=== PATIENT | female | born 1950 | race African-American/Black ===

== ENCOUNTER 2016-08-01 12:02 | Emergency (ER) | payer MEDICARE, OTHER ==
[~2016-08-01] VITALS: Ht 154.9 cm; Wt 83.9 kg
[~2016-08-01 12:02] MED LIST: AMLODIPINE BES2.5 MG ORAL; BENAZEPRIL HCL10 MG ORAL; CATAPRES0.1 MG ORAL; CATAPRES0.2 MG ORAL; CEPHALEXIN500 MG PO; DILANTIN30 MG ORAL; DILANTIN50 MG PO; GABAPENTIN; GABAPENTIN300 MG ORAL; HYDROCHLOROTH12.5 M2 ORAL; IBUPROFEN600 MG ORAL; NORCO 5-325 TA1 EACH ORAL; PHENOBARBITAL30 MG ORAL; PHENOBARBITAL30 MG PO; RANITIDINE HCL150 MG ORAL; VICODIN 5-5001 EACH ORAL; ZOFRAN ODT4 MG ORAL; [UNRECOGNIZED DRUG - OTHER]; gabapentin PO
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
[2016-08-01 13:08] VITALS: BP 127/73
[2016-08-01] MEDS ORDERED: TYLENOL325 MG ORAL (13:30)
[2016-08-01 13:44] VITALS: BP 127/73
--- NOTE | 2016-08-01 17:44 | Diagnostic Imaging Report ---
Indication: PAIN Technique: 3 views of the left shoulder Comparison: none Findings: No acute fractures. No dislocations. There is degenerative narrowing of the glenohumeral joint. There is any unusual ossific density protruding inferior to the femoral head neck junction, appears to be confluent with the main body of the humerus. Impression:Unusual appearing ossific density, appears to be attached to the humeral head, appearance suggestive of an osteochondroma. However, position of the physis is unusual for this. Other possibilities should be considered, including intra-articular calcifications that are not actually attached. For further evaluation Degenerative changes, as described No definite acute bony trauma. Findings previously discussed by phone with Dr. Jackson
== END 2016-08-01 13:45 | disposition home or self-care (01) ==
LOC: EMR 12:56
DX: S40.012A Contusion of left shoulder, initial encounter (principal); W19.XXXA Unspecified fall, initial encounter; Y92.9 Unspecified place or not applicable; I10 Essential (primary) hypertension; Z85.3 Personal history of malignant neoplasm of breast
CPT/HCPCS: 99283

== ENCOUNTER 2017-01-31 12:16 | Emergency (ER) | payer MEDICARE, OTHER ==
[~2017-01-31] VITALS: Ht 157.5 cm; Wt 85.7 kg
[~2017-01-31 12:16] MED LIST changes: +TYLENOL325 MG ORAL
[2017-01-31 12:19] VITALS: BP 139/86
[2017-01-31 12:42] LABS: APPEARANCE,URINE SLIGHTLY CLOUDY; KETONES,URINE 1+ (NEGATIVE); LEUKOCYTE ESTERASE ,URINE 3+ (NEGATIVE); NITRITE,URINE NEGATIVE (NEGATIVE); PH,URINE 6 (4.5-8.0); PROTEIN,URINE 1+ (NEGATIVE); UROBILINOGEN,URINE 1 MG/DL (0.0-1.0)
[2017-01-31 12:47] LABS: BACTERIA,URINE FEW /HPF; SQUAMOUS EPITHELIAL CELL,UR FEW /LPF (NONE/OCC)
[2017-01-31] MEDS ORDERED: traMADol 50mg tab ORAL ONE (13:15)
--- NOTE | 2017-01-31 13:36 | Emergency Room Report ---
History of Present Illness General Chief Complaint: Pain Source: Patient, Medical Record Present Illness HPI The patient is a 66-year-old female presenting for right lower back pain which began this morning upon waking. She denies any injury to the area. Pain is 9/ 10 sharp sensation and does not radiate. Pain is continuous and worse with movement. She denies trying any pain medications at home. She denies any other symptoms including N, V, F, chills, dysuria, hematuria, abd pain, CP, SOB Allergies: Coded Allergies: TETRACYCLINE (Verified Allergy, Unknown, 06/20/10) Patient History Past Medical History: see triage record Pertinent Family History: none Reviewed Nursing Documentation: PMH: Agreed, PSxH: Agreed Nursing Documentation-PMH Past Medical History: No History, Except For Hx Cardiac Problems: No Hx Hypertension: Yes Hx Pacemaker: No Hx Asthma: No Hx COPD: No Hx Diabetes: No Hx Cancer: Yes - left breast, 8 yrs in remission Hx Gastrointestinal Problems: No Hx Dialysis: No Hx Neurological Problems: Yes - Brain Surgery 1993 Hx Cerebrovascular Accident: No Hx Seizures: Yes - last sz 6 yrs ago Review of Systems All Other Systems: negative except mentioned in HPI Physical Exam Vital Signs Date Time Temp Pulse Resp B/P (MAP) Pulse Ox O2 Delivery O2 Flow Rate FiO2 01/31/17 12:19 98.2 93 16 139/86 98 Room Air Sp02 EP Interpretation: reviewed, normal General Appearance: no apparent distress, alert, GCS 15, non-toxic Head: normocephalic, atraumatic Eyes: bilateral eye normal inspection, bilateral eye PERRL ENT: hearing grossly normal, normal pharynx, no angioedema, normal voice Neck: full range of motion, supple/symm/no masses Respiratory: chest non-tender, lungs clear, normal breath sounds, speaking full sentences Cardiovascular #1: regular rate, rhythm, no edema Genitourinary: normal inspection, no CVA tenderness Musculoskeletal: normal inspection, tender - Diffuse lower back to soft touch Neurologic: alert, oriented x3, responsive Psychiatric: judgement/insight normal, memory normal, mood/affect normal, no suicidal/homicidal ideation Skin: normal color, no rash, warm/dry, well hydrated Medical Decision Making PA Attestation Dr. Cole is my supervising physician. Patient management was discussed with my supervising physician Diagnostic Impression: Primary Impression: Urinary tract infection Qualified Codes: N39.0 - Urinary tract infection, site not specified ER Course The patient is a 66-year-old female presenting for right lower back pain Differential diagnosis considered but not limited to: UTI,pyelonephritis, muscle strain, chronic pain PE: Vitals WNL. NAD. Abdomen: Normal appearance. Non distended. No ecchymosis. Normal BS. TTP over suprapubic region only. No McBurney point tenderness. No guarding. Back: No midline tenderness. Diffuse lumbar muscular tenderness with soft palpation. No CVA tenderness Urinalysis is consistent with urinary tract infection She is given tramadol for pain with significant improvement. The patient discharged home with a prescription for Macrobid and is given ER precautions. Laboratory Tests Test 01/31/17 12:26 Urine Color Yellow Urine Appearance Slightly cloudy Urine pH 6 (4.5-8.0) Urine Specific [place] 1.020 (1.005-1.035) Urine Protein 1+ (NEGATIVE) H Urine Glucose (UA) Negative (NEGATIVE) Urine Ketones 1+ (NEGATIVE) H Urine Occult Blood 1+ (NEGATIVE) H Urine Nitrite Negative (NEGATIVE) Urine Bilirubin Negative (NEGATIVE) Urine Urobilinogen 1 MG/DL (0.0-1.0) H Urine Leukocyte Esterase 3+ (NEGATIVE) H Urine RBC 2-4 /HPF (0 - 2) H Urine WBC 2-4 /HPF (0 - 2) Urine Squamous Epithelial Cells Few /LPF (NONE/OCC) Urine Bacteria Few /HPF (NONE) Lab Results Impression Few bacteria with WBCs Last Vital Signs Date Time Temp Pulse Resp B/P (MAP) Pulse Ox O2 Delivery O2 Flow Rate FiO2 01/31/17 12:19 98.2 93 16 139/86 98 Room Air Status: improved Disposition: HOME, SELF-CARE Condition: Improved Scripts Tramadol Hcl* (ULTRAM*) 50 Mg Tablet 50 MG ORAL Q6H Y for For Pain, #10 TAB 0 Refills Prov: TERZIAN,SACHI P.A. 01/31/17 Cephalexin* (KEFLEX*) 500 Mg Capsule 500 MG ORAL EVERY 6 HOURS, #28 CAP Prov: TERZIAN,SACHI P.A. 01/31/17 Referrals: NON PHYSICIAN (PCP) SACHI CASTELLANO PFaina Jan 31, 2017 13:36
[2017-01-31] MEDS ORDERED: TRAMADOL HCL50 MG ORAL (13:37)
[2017-01-31] MEDS ORDERED: CEPHALEXIN500 MG ORAL (13:37)
[2017-01-31 13:45] VITALS: BP 139/86
== END 2017-01-31 14:26 | disposition home or self-care (01) ==
LOC: EMR 12:30
DX: N39.0 Urinary tract infection, site not specified (principal); Z88.1 Allergy status to other antibiotic agents; I10 Essential (primary) hypertension; C50.912 Malignant neoplasm of unspecified site of left female breast; Z86.69 Personal history of other diseases of the nervous system and sense organs; M54.5 Low back pain
CPT/HCPCS: 81003; 99284

== ENCOUNTER 2017-06-11 12:41 | Emergency (ER) | payer MEDICARE, OTHER ==
[~2017-06-11] VITALS: Ht 162.6 cm; Wt 83.0 kg
[~2017-06-11 12:41] MED LIST changes: +CEPHALEXIN500 MG ORAL; +TRAMADOL HCL50 MG ORAL
[2017-06-11] MEDS ORDERED: Bacitracin Oint UD TOPIC ONE (13:30)
--- NOTE | 2017-06-11 13:31 | Emergency Room Report ---
History of Present Illness General Chief Complaint: Skin Rash/Abscess Source: Patient, Medical Record Present Illness HPI 66-year-old female presents to the emergency department complaining of rash to the right side of her chest under the right breast 2 weeks. denies pain. Patient reports rashes been progressive she changed bras in attempt to help. Denies fevers or chills. Denies lesions/rashes elsewhere on the body. Denies new medications or body washes or creams. Denies swelling of the lips, tongue , throat or airway. Denies wheezing, or shortness of breath. Denies recent travel , recent illness or ill contacts. denies blisters, oral lesions, or sloughing of the skin. hx of left breast mastectomy following breast ca dx. Allergies: Coded Allergies: TETRACYCLINE (Verified Allergy, Unknown, 06/20/10) Patient History Past Medical History: see triage record Past Surgical History: none Pertinent Family History: none Immunizations: UTD Reviewed Nursing Documentation: PMH: Agreed, PSxH: Agreed Nursing Documentation-PMH Hx Cardiac Problems: No Hx Hypertension: Yes Hx Pacemaker: No Hx Asthma: No Hx COPD: No Hx Diabetes: No Hx Cancer: Yes - left breast, 8 yrs in remission Hx Gastrointestinal Problems: No Hx Dialysis: No Hx Neurological Problems: Yes - Brain Surgery 1993 Hx Cerebrovascular Accident: No Hx Seizures: Yes - last sz 6 yrs ago Review of Systems All Other Systems: negative except mentioned in HPI Physical Exam Vital Signs Date Time Temp Pulse Resp B/P (MAP) Pulse Ox O2 Delivery O2 Flow Rate FiO2 06/11/17 12:52 98.6 69 18 113/73 95 Room Air 98.6 Sp02 EP Interpretation: reviewed, normal General Appearance: no apparent distress, alert, GCS 15, non-toxic Head: normocephalic, atraumatic Eyes: bilateral eye PERRL ENT: hearing grossly normal, normal voice Neck: full range of motion Respiratory: lungs clear, normal breath sounds, no wheezing, speaking full sentences Cardiovascular #1: regular rate, rhythm Musculoskeletal: back normal, gait/station normal, normal range of motion, non- tender Neurologic: alert, oriented x3, responsive, motor strength/tone normal, sensory intact, speech normal, grossly normal Psychiatric: judgement/insight normal Skin: normal color, warm/dry, well hydrated, rash - small superficial abrasion to the right lateral ribcage, just under the right breask, no erythema, no blisters or vesicles. Lymphatic: no adenopathy Medical Decision Making PA Attestation Dr. epstein is my supervising Physician whom patient management has been discussed with. Diagnostic Impression: Primary Impression: Rash and other nonspecific skin eruption ER Course 66-year-old female presents to the emergency department complaining of rash to the right side of her chest under the right breast 2 weeks. denies pain. Patient reports rashes been progressive she changed bras in attempt to help. Denies fevers or chills. Denies lesions/rashes elsewhere on the body. Denies new medications or body washes or creams. Denies swelling of the lips, tongue , throat or airway. Denies wheezing, or shortness of breath. Denies recent travel , recent illness or ill contacts. denies blisters, oral lesions, or sloughing of the skin. hx of left breast mastectomy following breast ca dx. Ddx considered but are not limited to cellulitis, scabies, shingles, varicella, dermatitis, urticaria, eczema, tinea, viral exanthem, SJS Vital signs: are WNL, pt. is afebrile H&PE are most consistent with friction dermatitis. no evidence of fungal infection or secondary bacterial infection. ORDERS: none required at this time, the diagnosis is clinical ED INTERVENTIONS: -Bacitracin is applied. DISCHARGE: At this time pt. is stable for d/c to home. Will provide printed patient care instructions, and any necessary prescriptions. Care plan and follow up instructions have been discussed with the patient prior to discharge. Last Vital Signs Date Time Temp Pulse Resp B/P (MAP) Pulse Ox O2 Delivery O2 Flow Rate FiO2 06/11/17 12:52 98.6 69 18 113/73 95 Room Air 98.6 Disposition: HOME, SELF-CARE Condition: Stable Scripts Triamcinolone Acet (Triamcinolone Acetonide) 15 Gm Cream..g. 15 GM APPLIC BID, #15 GM Prov: Maryann Madrigal 06/11/17 Bacitracin/Polymyxin B Sulfate (BACITRACIN-POLYMYXIN OINTMENT) 28.35 Gm Oint...g. 1 APPLIC TP BID, #28.3 GM Prov: Maryann Madrigal 06/11/17 Patient Instructions: Rash Additional Instructions: Take medications as directed. Follow up with a Primary Care Provider in 3-5 days, even if your symptoms have resolved. --Please review list of primary care clinics, if you do not already have a primary care provider Return sooner to ED if new symptoms occur, or current symptoms become worse. - Please note that this Emergency Department Report was dictated using [employer] cost estimator technology software, occasionally this can lead to erroneous entry secondary to interpretation by the dictation equipment. Maryann Madrigal Jun 11, 2017 13:31
[2017-06-11] MEDS ORDERED: BACITRACIN-P28.35 GM TP (13:32)
[2017-06-11] MEDS ORDERED: KENALOG 0.025%15 GM APPLIC (13:32)
[2017-06-11 13:40] VITALS: BP 113/73
== END 2017-06-11 13:40 | disposition home or self-care (01) ==
LOC: EMR 13:30
DX: R21 Rash and other nonspecific skin eruption (principal); I10 Essential (primary) hypertension; Z85.3 Personal history of malignant neoplasm of breast
CPT/HCPCS: 99284

== ENCOUNTER 2017-07-07 08:34 | Emergency (ER) | payer MEDICARE, OTHER ==
[~2017-07-07] VITALS: Ht 160 cm; Wt 81.6 kg
[~2017-07-07 08:34] MED LIST changes: +BACITRACIN-P28.35 GM TP; +KENALOG 0.025%15 GM APPLIC
[2017-07-07] MEDS ORDERED: AMOXICILLIN500 MG ORAL (09:03)
[2017-07-07] MEDS ORDERED: ALBUTEROL SULF8.5 GM INH (09:03)
[2017-07-07] MEDS ORDERED: PROMETHAZINE-C118 M1 ORAL (09:03)
[2017-07-07 09:15] VITALS: BP 120/67
[2017-07-07 09:16] VITALS: BP 120/67
--- NOTE | 2017-07-07 11:18 | Emergency Room Report ---
History of Present Illness General Chief Complaint: Flu Like Symptoms Source: Patient Present Illness HPI 66-year-old female presents to ED for evaluation. Patient complaining of cough 2 weeks. Notes cough with yellowish phlegm. Feels congested. Denies fevers or chills. Admits to smoking history. Denies chest pain or shortness of breath. Denies sick contacts or recent travel. No other aggravating relieving factors. Denies any other associated symptoms Allergies: Coded Allergies: TETRACYCLINE (Verified Allergy, Unknown, 06/20/10) Patient History Past Medical History: HTN, other - breast cancer Past Surgical History: none Pertinent Family History: none Social History: Denies: smoking, alcohol use, drug use Now: No Immunizations: UTD Reviewed Nursing Documentation: PMH: Agreed; PSxH: Agreed Nursing Documentation-PMH Hx Cardiac Problems: No Hx Hypertension: Yes Hx Pacemaker: No Hx Asthma: No Hx COPD: No Hx Diabetes: No Hx Cancer: Yes - left breast, 8 yrs in remission Hx Gastrointestinal Problems: No Hx Dialysis: No Hx Neurological Problems: Yes - Brain Surgery 1993 Hx Cerebrovascular Accident: No Hx Seizures: Yes - last sz 6 yrs ago Review of Systems All Other Systems: negative except mentioned in HPI Physical Exam Vital Signs Date Time Temp Pulse Resp B/P (MAP) Pulse Ox O2 Delivery O2 Flow Rate FiO2 07/07/17 08:41 98.2 91 20 120/67 99 Room Air 98.2 Sp02 EP Interpretation: reviewed, normal General Appearance: no apparent distress, alert, GCS 15, non-toxic Head: normocephalic, atraumatic Eyes: bilateral eye normal inspection, bilateral eye PERRL ENT: hearing grossly normal, normal pharynx, no angioedema, normal voice Neck: full range of motion, supple/symm/no masses Respiratory: chest non-tender, lungs clear, normal breath sounds, speaking full sentences Cardiovascular #1: regular rate, rhythm, no edema Cardiovascular #2: 2+ carotid (R), 2+ carotid (L), 2+ radial (R), 2+ radial (L) , 2+ dorsalis pedis (R), 2+ dorsalis pedis (L) Gastrointestinal: normal bowel sounds, non tender, soft, non-distended, no guarding, no rebound Rectal: deferred Genitourinary: normal inspection, no CVA tenderness Musculoskeletal: back normal, gait/station normal, normal range of motion, non- tender Neurologic: alert, oriented x3, responsive, motor strength/tone normal, sensory intact, speech normal Psychiatric: judgement/insight normal, memory normal, mood/affect normal, no suicidal/homicidal ideation Reflexes: 3+ bicep (R), 3+ bicep (L), 3+ tricep (R), 3+ tricep (L), 3+ knee (R) , 3+ knee (L) Skin: normal color, no rash, warm/dry, well hydrated Lymphatic: no adenopathy Medical Decision Making Diagnostic Impression: Primary Impression: Atypical pneumonia ER Course Hospital Course 66-year-old female presents ED complaining of congestion and cough x2 weeks Differential diagnoses include: URI, pharyngitis, otitis media, asthma Clinical course Patient placed on stretcher. After initial history, physical exam reveals an elderly female in no acute distress. Bilateral TM unremarkable. No pharyngeal erythema. No tonsillar exudates. No lymphadenopathy. lungs clear. abdomen soft. Presentation consistent with atypical pneumonia. Given presentation, i will prescribe abx, cough medication, inhaler Diagnosis - atypical pneumonia Stable and discharged home with Rx prednisone, albtuerol, promethazine/codeine. Instructed to followup with PMD. Return to ED if symptoms recur or worsen Last Vital Signs Date Time Temp Pulse Resp B/P (MAP) Pulse Ox O2 Delivery O2 Flow Rate FiO2 07/07/17 09:16 98.2 20 120/67 99 Room Air 98.2 07/07/17 09:15 91 Status: improved Disposition: HOME, SELF-CARE Condition: Stable Scripts Albuterol Sulfate* (ALBUTEROL SULFATE MDI*) 8.5 Gm Hfa.aer.ad 2 PUFF INH Q6H, #1 EA 0 Refills Prov: Liam Coronado MD 07/07/17 Codeine/Promethazine Hcl* (PROMETHAZINE-CODEINE SYRUP*) 118 Ml Syrup 5 ML ORAL Q6H PRN for For Cough, #118 ML 0 Refills Prov: Liam Coronado MD 07/07/17 Amoxicillin* (AMOXIL*) 500 Mg Capsule 500 MG ORAL THREE TIMES A DAY, #21 CAP Prov: Liam Coronado MD 07/07/17 Referrals: NOT CHOSEN IPA/,REFERRING Patient Instructions: Acute Bronchitis, [id number] Liam Coronado MD Jul 07, 2017 11:18
== END 2017-07-07 09:19 | disposition home or self-care (01) ==
LOC: EMR 09:12
DX: J18.9 Pneumonia, unspecified organism (principal); I10 Essential (primary) hypertension; Z85.3 Personal history of malignant neoplasm of breast
CPT/HCPCS: 99284

== ENCOUNTER 2018-05-19 10:17 | Emergency (ER) | payer MEDICARE, OTHER ==
[~2018-05-19] VITALS: Ht 165.1 cm; Wt 86.2 kg
[~2018-05-19 10:17] MED LIST changes: +ALBUTEROL SULF8.5 GM INH; +AMOXICILLIN500 MG ORAL; +PROMETHAZINE-C118 M1 ORAL
--- NOTE | 2018-05-19 10:23 | NUR ---
Pt called but not in waiting room. Will call again later.
[2018-05-19 10:59] VITALS: BP 142/89
[2018-05-19 11:00] VITALS: BP 142/89
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
== END 2018-05-19 11:01 | disposition home or self-care (01) ==
LOC: EMR 10:50
DX: J40 Bronchitis, not specified as acute or chronic (principal); I10 Essential (primary) hypertension; Z85.3 Personal history of malignant neoplasm of breast
CPT/HCPCS: 99282